=== PATIENT | female | born 1990 ===

== ENCOUNTER 2021-03-16 00:18 | Inpatient (IN) | payer OTHER ==
[2021-03-16] VITALS (40 sets, daily range): BP systolic 93–148; BP diastolic 45–85; PULSE 68–111; TEMP 98–99.3
--- NOTE | 2021-03-16 00:25 | NUR ---
PT ARRIVED TO UNIT AMBULATORY WITH SPOUSE AND SUPERVISOR SANDING BENCH SCIENTIST WITH COMPLAINTS OF INABILITY TO VOID AND CONTRACTIONS. PT OB CARE HAS BEEN PROVIDED BY [facility], TRANSPORTATION [facility]. PT IS A G1 L0 AT 41.2 WEEKS TODAY. CHARTING PROVIDED BY LAURITA ABRAHAM STATES THAT PT HAS BEEN UNABLE TO VOID SINCE STRAIGHT CATHED AT APPROXIMATELY 7PM THIS EVENING, HAS HAD A CERVICAL EXAM OF 8CM FOR "AWHILE" BUT PT AND LAURITA BENCH SCIENTIST UNSURE OF HOW LONG CERVIX HAS REMAINED UNCHANGED. PT STATES HX OF PUPPS, HAD DECLINED GBS TESTING AND GLUCOLA SCREENING, DENIES ANY SIGNIFICANT MEDICAL HX OR CONCERNS WITH THE . SOME LABWORK HAS BEEN COLLECTED SEVERAL MONTHS AGO AND THIS WAS ALSO PROVIDED. SVE ON ARRIVAL OF /-2 WITH SMALL AMOUNT OF BLOOD SHOW. PT BREATHING THROUGH CONTRACTIONS WHICH ARE 2-5 MINUTES APART. REASSUIRNG FHT'S OF 44. PT REQUESTING FOR CATHETERIZATION. WILL NOTIFY PHYSICIAN OF PT ARRIVAL.
--- NOTE | 2021-03-16 00:50 | NUR ---
AFTER SPEAKING WITH DR. ELAM THIS NURSE IN PT ROOM TO DISCUSS PLAN OF CARE WITH PT, SPOUSE, AND BEHAVIORAL SERVICES TECH DINING ROOM COORDINATOR. DUE TO PROM AT 0730 ON 03/15/21 AND UNKNOWN GBS STATUS WE WOULD LIKE TO START IV ABX THERAPY, DISCUSSED BENEFITS OF THIS FOR MOTHER AND BABY. ALSO PLAN TO PLACE A SCHMIDT CATHETER TO DRAIN THE BLADDER. WILL RECHECK SVE 1 HOUR FROM ARRIVAL AND THEN REEVALUATE THE PLAN OF CARE. PT, SPOUSE, AND BEHAVIORAL SERVICES TECH DINING ROOM COORDINATOR VERBALIZE UNDERSTANDING AND AGREE TO PLAN.
[2021-03-16 01:45] LABS: BASO # 0.1 (0.0-0.2); BASO % 0.2 % (0.0-2.0); EOS # 0.2 (0.0-0.7); EOS % 1.1 % (0-4.0); GRAN # 17.5 (1.4-6.5); GRAN % 84.1 % (42.2-75.2); LYMPH # 1.4 (1.2-3.4); LYMPH % 6.5 % (20.0-51.0); MEAN CELL VOLUME 93 fl (80.0-100.0); MEAN CORPUSCULAR HEMOGLOBIN 31 pg (27.0-31.0); MEAN CORPUSCULAR HGB CONC 33 g/dl (33.0-37.0); MONO # 1.4 (0.1-0.6); MONO % 6.8 % (1.7-9.3); PLATELET COUNT 254 K/mm3 (130-400); REDCELL DISTRIBUTION WIDTH-CV 16.1 % (11.5-14.5)
[2021-03-16 01:49] LABS: HEMATOCRIT 36.2 % (37.0-47.0)
--- NOTE | 2021-03-16 01:50 | NUR ---
PT REQUESTING TO COME OF MONITORS PRIOR TO START OF ABX AND PITOCIN TO GET THE SHOWER. PT OFF MONITORS AT THIS TIME.
[2021-03-16 01:58] LABS: ALBUMIN 3.6 gm/dL (3.5-5.0); BILIRUBIN,TOTAL 0.4 mg/dL (0.0-1.0); CALCIUM 9.8 mg/dL (8.4-10.2); CREATININE, serum 0.57 (0.52-1.25); POTASSIUM 3.8 mmol/L (3.4-5.0); TOTAL PROTEIN 6.9 gm/dL (6.4-8.2)
[2021-03-16 02:30] LABS: HIV 1/2 Antibodies Non-Reactive; HIV-1p24 Antigen Non-Reactive
[2021-03-16 05:45] LABS: COLLECTION METHOD CATHETER
[2021-03-16 05:53] LABS: PH 5 (5-8); SQUAMOUS EPITHELIAL None Seen /hpf; URINE APPEARANCE Cloudy; URINE BACTERIA None Seen /hpf; URINE BILIRUBIN Negative (NEGATIVE); URINE BLOOD 3+ (NEGATIVE); URINE COLOR Amber; URINE GLUCOSE Negative (NEGATIVE); URINE KETONE 1+ (NEGATIVE); URINE LEUKOCYTE ESTERASE Trace (NEGATIVE); URINE NITRATE Negative (NEGATIVE); URINE PROTEIN(semi-quant) 2+ (NEGATIVE); URINE RBC >50 /hpf; URINE UROBILINOGEN Negative (NEGATIVE)
--- NOTE | 2021-03-16 05:57 | NUR ---
0500- PT NOT TOLERATING CONTRACTIONS WELL, MOANING WITH EACH CONTRACTION. DISCUSSED BENEFITS OF EPIDURAL PLACEMENT AT THIS TIME PT HAS HAD NO SIGNIFICANT CERVICAL CHANGE SINCE ARRIVAL TO THE UNIT APPOXIMATELY 5 HOURS AGO. PT WILL DISCUSS WITH SPOUSE AND INSTRUMENT CALIBRATOR ADVANCED QUALITY ENGINEER AND NOTIFY THIS NURSE OF DECISION. 0506- PT OPTS FOR EPIDURAL PLACEMENT. IVF BOLUS STARTED. Jc SPRINGER CRNA NOTIFIED OF REQUEST AND ON HIS WAY TO UNIT. 0545- PT SITTING UP AT BEDSIDE, Jc SPRINGER CRNA IN ROOM FOR PLACEMENT. 0549- SINGLE SHOT GIVEN BY Jc SPRINGER CRNA, PT TOLERATED WELL. 0557- REPOSITIONED INTO TRUE POSITION.
--- NOTE | 2021-03-16 08:00 | NUR ---
DR ELAM AND KATELIN, RN AT BEDSIDE DISCUSSING CSECTION PLAN OF CARE
[2021-03-16] MEDS ORDERED: PRENATAL (10:46)
--- NOTE | 2021-03-16 18:50 | NUR ---
1849- PT REQUESTS TO HAVE STOOL SOFTENER AT THIS TIME. REPORTS SHE GOT UP TO BATHROOM TO CHANGE HER PAD, BUT WAS NOT ABLE TO URINATE AT THIS TIME. PLAN OF CARE DISCUSSED AND STOOL SOFTENER PROVIDED. 1999- ASSESSMENT CHARTED. DISCUSSED WITH PT PAIN MANAGEMENT AND ENCOURAGED HER TO START SOME PAIN MEDICATION BEFORE HER PAIN BECAME UNBEARABLE. PT AGREEABLE TO TAKING MOTRIN AT THIS TIME. MANY QUESTIONS ANSWERED AND PLAN OF CARE DISCUSSED. 2022- MOTRIN PROVIDED. 2099- NURSE TO ROOM TO ATTEMPT .
[2021-03-17 01:40] VITALS: BP 95/55; PULSE 85; TEMP 97.8
[2021-03-17 04:20] VITALS: BP 110/68; PULSE 88; TEMP 97.6
[2021-03-17 07:52] VITALS: BP 99/59; PULSE 70; TEMP 98
--- NOTE | 2021-03-17 13:23 | NUR ---
TALKED WITH ORESTES WITH SOCIAL WORK ABOUT PATIENT NEEDING RESOURCES FOR INSURANCE AND WIC. PATIENT TALKS ABOUT PAYMENT EVERYTIME THIS NURSE IS IN ROOM, FOR EXAMPLE PATIENT ASKS, "HOW MUCH ARE THE DIAPERS?" "HOW MUCH IS THE LUNCH?" "HOW MUCH IS THE MEDICINE?" "HOW MUCH IS THE HEARING TEST?"
--- NOTE | 2021-03-17 15:08 | NUR ---
TOBIN consulted on patient wanting resources and not being insured. SW met with patient and who are from [place] moved here recently. Patient reports that she is concerned about the bill and after care. SW education patient on applying for [facility], and gave options for various pediatricians in town for both who do vacci and not. Educated patient on computer aided design technician and gave them a packet for director financial systems, educated on WIC and Diaper Programs, educated the patients on medical continuity. Lft them with resouce packet also. They reports that they have some supplies. Father of Baby reports that he is working and also is in need of coverage. Patient asked about [employer] and educated on [employer]. Notified nurse that I gave patient optins. Nothing follows.
[2021-03-17 16:14] VITALS: BP 112/57; PULSE 120; TEMP 99
[2021-03-17 19:30] VITALS: BP 109/61; PULSE 94; TEMP 98.3
[2021-03-18 07:40] VITALS: BP 119/65; PULSE 100; TEMP 98
[2021-03-18] MEDS ORDERED: MOTRIN 800800 MG/TAB PO (08:18)
--- NOTE | 2021-03-18 10:22 | NUR ---
Initial visit; Family thanked Salvager Helper for offering congratulations and God's blessings for the of their daughter. Salvager Helper thanked family for choosing [facility].
== END 2021-03-18 11:20 | disposition home or self-care (01) | DRG 788 ==
LOC: LDRO 00:18 → LDR 00:20 → OB 10:45
PROVIDERS: ADMIT Obstetrics & Gynecology
PROC: 10D00Z1 Extraction of Products of Conception, Low, Open Approach (ICD-10-PCS; principal; 2021-03-16)
DX: O48.0 Post-term pregnancy (principal); Z3A.41 41 weeks gestation of pregnancy; Z37.0 Single live birth; O77.0 Labor and delivery complicated by meconium in amniotic fluid; O62.1 Secondary uterine inertia; O42.92 Full-term premature rupture of membranes, unspecified as to length of time between rupture and onset of labor; O76 Abnormality in fetal heart rate and rhythm complicating labor and delivery
CPT/HCPCS: J0690; J1885; J2175; J2370; J2405; J2540; J2590; J2795; J7120